=== PATIENT | female | born 1990 | race African-American/Black ===

== ENCOUNTER 2017-10-06 23:02 | Emergency (ER) | payer BC ==
[2017-10-06] MEDS ORDERED: ACETAMINOPHEN 325 MG TABLET PO ONE (23:12)
--- NOTE | 2017-10-07 01:22 | RADIOLOGY REPORT (SQ) ---
EXAM DESCRIPTION: CHEST PA/LAT COMPLETED DATE/TIME: 10/07/2017 1:10 am REASON FOR STUDY: fever, dyspnea COMPARISON: None. EXAM PARAMETERS: NUMBER OF VIEWS: two views TECHNIQUE: Digital Frontal and Lateral radiographic views of the chest acquired. RADIATION DOSE: NA LIMITATIONS: none FINDINGS: LUNGS AND PLEURA: No consolidation, pneumothorax or pleural effusion. MEDIASTINUM AND HILAR STRUCTURES: No masses or contour abnormalities. HEART AND VASCULAR STRUCTURES: Heart normal size. No evidence for failure. BONES: No acute findings. HARDWARE: Radiopaque piercing at the bilateral nipple regions. IMPRESSION: No acute radiographic finding in the chest. TECHNICAL DOCUMENTATION: JOB ID: [id number]- All Rights Reserved
--- NOTE | 2017-10-07 01:22 | ER Document Report ---
ED General - General Chief Complaint: Flu Symptoms Stated Complaint: FLU LIKE SYMPTOMS Time Seen by Provider: 10/07/17 00:30 Notes: Patient is a 27-year-old female presents with complaints of body aches, fever, nasal congestion and cough. Symptoms started yesterday which is nasal congestion. Today she started having fever and body aches and feeling unwell. Some nausea. One episode of diarrhea. No vomiting. No other complaints at this time. Patient did just have a trip to [place]. She has not yet had a flu shot. - Related Data Allergies/Adverse Reactions: No Known Allergies Allergy (Unverified 10/06/17 23:10) Past Medical History - Social History Smoking Status: Never Smoker Frequency of alcohol use: None Drug Abuse: None Family History: Reviewed & Not Pertinent Patient has suicidal ideation: No Patient has homicidal ideation: No Renal/ Medical History: Denies: Hx Peritoneal Dialysis Review of Systems - Review of Systems Notes: My Normal Review Basic REVIEW OF SYSTEMS: CONSTITUTIONAL : Fever. EENT: Nasal congestion. RESPIRATORY: Cough. GASTROINTESTINAL: Denies abdominal pain. Denies nausea, vomiting, or diarrhea. GENITOURINARY: Denies difficulty urinating, painful urination, burning, frequency, or blood in urine. MUSCULOSKELETAL: Body aches SKIN: Denies rash or skin lesions. NEUROLOGICAL: Denies altered mental status or loss of consciousness. Has a headache. Denies weakness or paralysis or loss of use of either side. Denies problems with gait or speech. Denies sensory or motor loss. ALL OTHER SYSTEMS REVIEWED AND NEGATIVE. Physical Exam - Vital signs Vitals: Temp Pulse Resp BP Pulse Ox 103.1 F H 104 H 18 155/75 H 99 10/06/17 23:10 10/06/17 23:10 10/06/17 23:10 10/06/17 23:10 10/06/17 23:10 - Notes Notes: General Appearance: Well nourished, alert, cooperative, no acute distress, no obvious discomfort. Clinically well-appearing. Some audible nasal congestion on exam. Vitals: reviewed, See vital signs table. Head: no swelling or tenderness to the head Eyes: PERRL, EOMI, Conjuctiva clear Mouth: No decreasd moisture Throat: No tonsillar inflammation, No airway obstruction, No lymphadenopathy Neck: Supple, no neck tenderness, No thyromegaly Lungs: No wheezing, No rales, No rhonci, No accessory muscle use, good air exchange bilaterally. Heart: Mildly tachycardic rate, Regular rythm, No murmur, no rub Abdomen: Normal BS, soft, No rigidity, No abdominal tenderness, No guarding, no rebound Extremities: strength 5/5 in all extremities, good pulses in all extremities, no swelling or tenderness in the extremities, no edema. Skin: warm, dry, appropriate color, no rash Neuro: speech clear, oriented x 3, normal affect, responds appropriately to questions. Renal nerves II through XII are intact. Patient moves all extremities on her own without difficulty. No gross neurologic deficit on exam. Course - Re-evaluation Re-evalutation: 10/07/17 02:42 Patient's flu swab was negative but as discussed with her the flu swab is 900% sensitive when symptoms are very consistent with the flu. She also may have another virus that causes flulike symptoms. Informed her treatment at this time is symptomatic care. Encouraged her to continue drink fluids and take Tylenol or Motrin for fever control. Encouraged her return to ER immediately if she has severe fevers, vomiting, diarrhea, or she feels unwell. Patient clinically looks very well and is in no distress and I feel safe to be discharged home. Dictation of this chart was performed using voice recognition software; therefore, there may be some unintended grammatical errors. - Vital Signs Vital signs: Temp Pulse Resp BP Pulse Ox 99.4 F 96 16 131/75 H 98 10/07/17 02:36 10/07/17 02:36 10/07/17 02:36 10/07/17 02:36 10/07/17 02:36 Discharge - Discharge Clinical Impression: Body aches, Congestion of nasal sinus Fever Qualifiers: Fever type: unspecified Qualified Code(s): R50.9 - Fever, unspecified Condition: Good Disposition: HOME, SELF-CARE Additional Instructions: Please take Tylenol and Motrin for your fever. Your flu swab was negative; however, as discussed with you the flu swab is not very sensitive. There is still a high likelihood that you could have the flu or another virus that causes flu like symptoms. your chest x-ray was negative for pneumonia. At this time I feel you are safe to be discharged home but you must keep a close eye on yourself. You should return to the ER immediately if you start felling more short of breath, have worsening fevers despite taking Tylenol, or if you feel unwell. Please follow-up with us or your doctor in 3 days for reevaluation. Forms: Return to Work
[2017-10-07 02:37] VITALS: BP 131/75
== END 2017-10-07 02:46 | disposition home or self-care (01) ==
LOC: ER 23:02
DX: M79.1 Myalgia (principal); R50.9 Fever, unspecified; R09.81 Nasal congestion; R05 Cough
CPT/HCPCS: 71020; 87804; 99284